=== PATIENT | female | born 1935 | race Caucasian/White ===

== ENCOUNTER 2020-05-13 07:16 | Emergency (ER) | payer BC, OTHER ==
[2020-05-13 07:24] VITALS: BMI 28.3
[2020-05-13] MEDS ORDERED: ACETAMINOPHEN 1000 MG/100 ML VIAL (NON FORMULARY) IVPB ONE (08:17)
[2020-05-13] MEDS ORDERED: SODIUM CHLORIDE 0.9% 500 ML INFUS.BAG IV ONE (08:17)
[2020-05-13] MEDS ORDERED: LOSARTAN POTASSIUM 50 MG TABLET PO ONE (08:18)
[2020-05-13] MEDS ORDERED: ACETAMINOPHEN INJECTION 100 ML IVPB ONE (08:24)
[2020-05-13] MEDS ORDERED: LOSARTAN POTASSIUM 50 MG TABLET ONE (08:24)
[2020-05-13 09:17] LABS: BASO % 0.7 % (0-2.0); EOS % 3.3 % (0-4.5); HEMATOCRIT 41.8 % (32.4-45.2); HEMOGLOBIN 13.6 GM/dL (10.7-15.3); LYMPH % 13.5 % (8-40); MCH 29.5 pg (25.7-33.7); MCHC 32.6 g/dl (32.0-36.0); MEAN CELL VOLUME 90.4 fl (80-96); MEAN PLT VOLUME 8.5 fl (7.5-11.1); MONO % 8.2 % (3.8-10.2); NEUT % 74.3 % (42.8-82.8); PLATELET COUNT 294 K/MM3 (134-434); RBC 4.62 M/mm3 (3.60-5.2); RDW 14.2 % (11.6-15.6); WHITE BLOOD COUNT 9.6 K/mm3 (4.0-10.0)
[2020-05-13 09:39] LABS: CHLORIDE 101 mmol/L (98-107); POTASSIUM 4.7 mmol/L (3.5-5.1); SODIUM 136 mmol/L (136-145)
[2020-05-13 09:42] LABS: ALBUMIN 3.7 g/dl (3.4-5.0); ANION GAP 7 MMOL/L (8-16); BLOOD UREA NITROGEN 13.2 mg/dL (7-18); CALCIUM 9.5 mg/dL (8.5-10.1); CO2 28 mmol/L (21-32); GLUCOSE,RANDOM 80 mg/dL (74-106)
[2020-05-13 09:45] LABS: CREATININE 0.8 mg/dL (0.55-1.3); SGOT/AST 48 U/L (15-37); SGPT/ALT 41 U/L (13-61)
[2020-05-13 09:46] LABS: BILIRUBIN,TOTAL 0.6 mg/dL (0.2-1); TOT PROT 7.4 g/dl (6.4-8.2)
[2020-05-13 09:48] LABS: ALK PHOS 80 U/L (45-117)
[2020-05-13] MEDS ORDERED: ASPIRIN 81 MG CHEWABLE TABLETS PO ONE (10:57)
[2020-05-13] MEDS ORDERED: METOCLOPRAMIDE HCL INJECTION 10 MG/2 ML VIAL IVPUSH ONE (10:57)
[2020-05-13] MEDS ORDERED: ASPIRIN 81 MG CHEWABLE TABLETS ONE (11:04)
[2020-05-13] MEDS ORDERED: METOCLOPRAMIDE HCL INJECTION 10 MG/2 ML VIAL ONE (11:04)
[2020-05-13 11:13] LABS: CHOLESTEROL 129 mg/dL (50-200); TRIGLYCERIDES 87 mg/dL (0-150)
[2020-05-13 11:14] LABS: LDL CHOLESTEROL (ONLY SJRH) 50 mg/dL (5-100)
[2020-05-13 11:15] LABS: HDL CHOLESTEROL 69 mg/dL (40-60)
[2020-05-13 13:18] VITALS: BP 152/79; PULSE 98
== END 2020-05-13 13:25 | disposition home or self-care (01) ==
LOC: JER 07:16
PROC: 3E0333Z Introduction of Anti-inflammatory into Peripheral Vein, Percutaneous Approach (ICD-10-PCS; principal; 2020-05-13)
PROC: 3E033GC Introduction of Other Therapeutic Substance into Peripheral Vein, Percutaneous Approach (ICD-10-PCS; 2020-05-13)
DX: R51.9 Headache, unspecified (principal); M54.2 Cervicalgia
CPT/HCPCS: 36415; 70450-TC; 70551-TC; 71045-TC-FY; 80053; 80061; 82550; 83721; 84484; 85025; 93005; 93010; 99285-25; J0131